=== PATIENT | female | born 1940 | race Caucasian/White ===

== ENCOUNTER 2024-10-15 16:41 | Inpatient (IN) | payer OTHER ==
[~2024-10-15] VITALS: Ht 165.1 cm; Wt 80.8 kg
[2024-10-15 17:04] VITALS: BP 96/52
[2024-10-15] MEDS ORDERED: IOHEXOL 300 MG/ML 100 ML VIAL IV ONE (17:30)
[2024-10-15] MEDS ORDERED: SODIUM CHLORIDE 0.9% 1,000 ML IV ONE ×3 (17:40→21:18)
[2024-10-15 18:01] LABS: BASO # 0.0 10*3/uL (0.0-0.1); BASO % 0.2 % (0.0-1.0); EOS # 0.0 10*3/uL (0.0-0.4); EOS % 0.3 % (1.0-4.0); MEAN CELL VOLUME 97.8 fl (81.0-99.0); MEAN CORPUSCULAR HGB 31.1 pg (27.0-31.0); MEAN PLATELET VOLUME 10.4 fl (9.6-12.3); MONO # 0.4 10*3/uL (0.1-1.0); MONO % 3.4 % (3.0-9.0); NEUT # 11.4 10*3/uL (2.3-7.9); NEUT % 90.0 % (47.0-73.0); NUCLEATED RED BLOOD CELL 0.0 % (0.0-0.0); NUCLEATED RED BLOOD CELL 0.0 10*3/uL (0.0-0.0); PLATELET COUNT AUTOMATED 93 10*3/uL (130-400); RED CELL DISTRI WIDTH 14.9 % (0-14.5)
[2024-10-15] MEDS ORDERED: AMLODIPINE BESYL5 MG PO (18:18)
[2024-10-15] MEDS ORDERED: LEVOTHYROXINE75 MCG PO (18:19)
[2024-10-15] MEDS ORDERED: CARVEDILOL3.125 MG PO (18:19)
[2024-10-15] MEDS ORDERED: ATORVASTATIN CA20 M1 PO (18:20)
[2024-10-15] MEDS ORDERED: SERTRALINE HYDR50 MG PO (18:21)
[2024-10-15 18:23] LABS: BUN 83.0 mg/dl (9-23)
[2024-10-15] MEDS ORDERED: DHIVY 25-100 M1 EAC1 PO (18:23)
[2024-10-15] MEDS ORDERED: RALOXIFENE HYDR60 MG PO (18:24)
[2024-10-15] MEDS ORDERED: ENALAPRIL5 MG PO (18:25)
[2024-10-15] MEDS ORDERED: CLARITIN10 MG PO (18:27)
[2024-10-15] MEDS ORDERED: OMEPRAZOLE20 M3 PO (18:28)
[2024-10-15] MEDS ORDERED: [UNRECOGNIZED DRUG - OTHER] PO (18:29)
[2024-10-15] MEDS ORDERED: NASACORT16.9 ML INH (18:30)
[2024-10-15 20:23] VITALS: BP 121/62
[2024-10-15] MEDS ORDERED: CIPROFLOXACIN 200 ML IV ONE (20:50)
[2024-10-15] MEDS ORDERED: Ondansetron Hydrochloride 4 MG/2 ML VIAL IV PRN (21:15)
[2024-10-15] MEDS ORDERED: SODIUM CHLORIDE 0.9% 1,000 ML IV SCH (21:20)
[2024-10-15] MEDS ORDERED: Lactated Ringer's Solution 1,000 ML IV SCH (21:45)
[2024-10-15] MEDS ORDERED: metroNIDAZOLE 500 MG TAB PO SCH (22:00)
[2024-10-15 22:40] LABS: BUN 82.0 mg/dl (9-23); CPK 450.0 U/L (34-171); SGPT/ALT 67.0 U/L (5-49)
[2024-10-15 22:56] LABS: BILIRUBIN Negative (Negative); BLOOD 3+ (Negative); CLARITY Cloudy (Clear); COLOR Dark Yellow (Yellow); KETONE Trace (Negative); LEUKO ESTERASE 3+ (Negative); NITRITE Negative (Negative); PH 5.0 (4.5-8.0); SPECIFIC GRAVITY 1.015 (1.001-1.030); UROBILINOGEN 1.0 E.U./dl (0.0-1.0)
[2024-10-15 23:05] LABS: BACTERIA 1+; EPITHELIAL CELLS 16-20; MUCOUS 1+; RBC 41-50 rbc/hpf (0-2); WBC 31-40 wbc/hpf (0-5)
[2024-10-16 00:25] VITALS: BP 111/50
[2024-10-16] MEDS ORDERED: Lactated Ringer's Solution 2,000 ML IV ONE (01:17)
[2024-10-16] MEDS ORDERED: LORATADINE 10 MG TAB PO PRN (01:55)
[2024-10-16 06:04] LABS: BASO # 0.0 10*3/uL (0.0-0.1); BASO % 0.2 % (0.0-1.0); EOS # 0.1 10*3/uL (0.0-0.4); EOS % 1.1 % (1.0-4.0); MEAN CELL VOLUME 100.0 fl (81.0-99.0); MEAN CORPUSCULAR HGB 31.0 pg (27.0-31.0); MEAN PLATELET VOLUME 10.9 fl (9.6-12.3); MONO # 0.4 10*3/uL (0.1-1.0); MONO % 4.2 % (3.0-9.0); NEUT # 8.6 10*3/uL (2.3-7.9); NEUT % 84.7 % (47.0-73.0); NUCLEATED RED BLOOD CELL 0.0 % (0.0-0.0); NUCLEATED RED BLOOD CELL 0.0 10*3/uL (0.0-0.0); PLATELET COUNT AUTOMATED 94 10*3/uL (130-400); RED CELL DISTRI WIDTH 14.7 % (0-14.5)
[2024-10-16 06:14] LABS: FREE T4 0.85 ng/dl (0.89-1.76); LDL CHOLESTEROL 64.0 mg/dL (9-159); SGPT/ALT 82.0 U/L (5-49)
[2024-10-16 06:20] LABS: BUN 72.0 mg/dl (9-23)
[2024-10-16 06:37] LABS: ACT PARTIAL THROMBO TIME 37.2 SECONDS (20.0-32.1)
[2024-10-16 07:20] LABS: VITAMIN D, 25-HYDROXY 38.6 ng/mL (30-100)
[2024-10-16 08:00] VITALS: BP 117/51
[2024-10-16] MEDS ORDERED: CARVEDILOL 3.125 MG TAB PO SCH (10:00)
[2024-10-16] MEDS ORDERED: Carbidopa/Levodopa 25/100MG 1 TAB TAB PO SCH (10:00)
[2024-10-16 12:00] VITALS: BP 118/50
[2024-10-16 16:00] VITALS: BP 149/75
[2024-10-16] MEDS ORDERED: ATORVASTATIN CALCIUM 20 MG TAB PO SCH (18:00)
[2024-10-16 20:00] VITALS: BP 124/63
[2024-10-16] MEDS ORDERED: FLUTICASONE PROPIONATE Nasal 16 Gm spray NAS SCH (22:00)
[2024-10-17] VITALS: BP 108/54
[2024-10-17 06:00] LABS: SGPT/ALT 84.0 U/L (5-49)
[2024-10-17 06:01] LABS: BUN 59.0 mg/dl (9-23)
[2024-10-17 06:12] LABS: BASO # 0.0 10*3/uL (0.0-0.1); BASO % 0.3 % (0.0-1.0); EOS # 0.2 10*3/uL (0.0-0.4); EOS % 3.4 % (1.0-4.0); MEAN CELL VOLUME 98.3 fl (81.0-99.0); MEAN CORPUSCULAR HGB 31.0 pg (27.0-31.0); MEAN PLATELET VOLUME 10.3 fl (9.6-12.3); MONO # 0.3 10*3/uL (0.1-1.0); MONO % 4.6 % (3.0-9.0); NEUT # 5.5 10*3/uL (2.3-7.9); NEUT % 79.3 % (47.0-73.0); NUCLEATED RED BLOOD CELL 0.0 % (0.0-0.0); NUCLEATED RED BLOOD CELL 0.0 10*3/uL (0.0-0.0); PLATELET COUNT AUTOMATED 91 10*3/uL (130-400); RED CELL DISTRI WIDTH 14.9 % (0-14.5)
[2024-10-17 08:00] VITALS: BP 136/87
[2024-10-17 12:00] VITALS: BP 154/80
[2024-10-17 16:00] VITALS: BP 154/79
[2024-10-17 20:00] VITALS: BP 148/88; BP 175/90
[2024-10-18] VITALS (8 sets, daily range): BP systolic 146–192; BP diastolic 72–98
[2024-10-18 06:15] LABS: BUN 40.0 mg/dl (9-23)
[2024-10-19] VITALS: BP 154/73
[2024-10-19 08:00] VITALS: BP 182/91
[2024-10-19 12:00] VITALS: BP 154/89
[2024-10-19 16:00] VITALS: BP 156/86
[2024-10-19 20:00] VITALS: BP 185/96
[2024-10-20] VITALS (7 sets, daily range): BP systolic 116–167; BP diastolic 69–98
[2024-10-20] MEDS ORDERED: SODIUM CHLORIDE 0.9% 1,000 ML IV ONE (00:05)
[2024-10-20] MEDS ORDERED: METOPROLOL SUCCINATE XR 25 MG TAB PO ONE ×2 (00:15→23:55)
[2024-10-20] MEDS ORDERED: APIXABAN 2.5 MG TABLET PO SCH ×2 (00:20→10:00)
[2024-10-20 06:11] LABS: BASO # 0.1 10*3/uL (0.0-0.1); BASO % 0.6 % (0.0-1.0); EOS # 0.3 10*3/uL (0.0-0.4); EOS % 2.3 % (1.0-4.0); MEAN CELL VOLUME 95.7 fl (81.0-99.0); MEAN CORPUSCULAR HGB 30.8 pg (27.0-31.0); MEAN PLATELET VOLUME 10.2 fl (9.6-12.3); MONO # 0.6 10*3/uL (0.1-1.0); MONO % 5.9 % (3.0-9.0); NEUT # 8.0 10*3/uL (2.3-7.9); NEUT % 74.9 % (47.0-73.0); NUCLEATED RED BLOOD CELL 0.0 % (0.0-0.0); NUCLEATED RED BLOOD CELL 0.0 10*3/uL (0.0-0.0); PLATELET COUNT AUTOMATED 122 10*3/uL (130-400); RED CELL DISTRI WIDTH 14.7 % (0-14.5)
[2024-10-20 06:29] LABS: SGPT/ALT 90.0 U/L (5-49)
[2024-10-20 06:32] LABS: BUN 23.0 mg/dl (9-23)
[2024-10-20] MEDS ORDERED: LISINOPRIL 20 MG TAB PO SCH (10:00)
[2024-10-21] VITALS: BP 145/75
[2024-10-21 08:00] VITALS: BP 186/91
[2024-10-21 09:24] VITALS: BP 150/92
[2024-10-21 12:24] VITALS: BP 158/96
[2024-10-21 16:00] VITALS: BP 136/88
[2024-10-21 20:00] VITALS: BP 172/92
[2024-10-22] VITALS (7 sets, daily range): BP systolic 141–196; BP diastolic 67–112
[2024-10-22] MEDS ORDERED: Labetalol Hydrochloride 20 MG/4 ML SYR IV ONE (15:35)
[2024-10-23] VITALS: BP 153/86
[2024-10-23 08:00] VITALS: BP 159/88
[2024-10-23] MEDS ORDERED: CARVEDILOL 6.25 MG TAB PO SCH (10:00)
[2024-10-23 12:00] VITALS: BP 131/75
[2024-10-23 16:00] VITALS: BP 170/89; BP 176/88
[2024-10-23 20:00] VITALS: BP 176/88
[2024-10-24] VITALS: BP 119/74
[2024-10-24 08:00] VITALS: BP 143/88
[2024-10-24] MEDS ORDERED: Menthol/Zinc Oxide 4 GM THIN T SCH (10:30)
[2024-10-24 12:00] VITALS: BP 138/77
[2024-10-24 16:00] VITALS: BP 151/83
[2024-10-24 20:00] VITALS: BP 131/70
[2024-10-25 08:00] VITALS: BP 165/83
[2024-10-25 08:38] LABS: BUN 29.0 mg/dl (9-23)
[2024-10-25 11:54] VITALS: BP 156/85
[2024-10-25] MEDS ORDERED: CARVEDILOL6.25 MG PO (12:40)
[2024-10-25] MEDS ORDERED: ELIQUIS5 M1 PO (12:42)
== END 2024-10-25 14:10 | DRG 682 ==
LOC: ED 16:41 → 5E 20:56 → EDHOLD 20:56 → 5E 23:40 → 4E 10-22 13:56
PROVIDERS: Nurse Practitioner Family; Student in an Organized Health Care Education/Training Program; ADMIT Internal Medicine; ATTEND Internal Medicine
DX: N17.0 Acute kidney failure with tubular necrosis (principal); E43 Unspecified severe protein-calorie malnutrition; N30.01 Acute cystitis with hematuria; E87.1 Hypo-osmolality and hyponatremia; E86.0 Dehydration; K52.9 Noninfective gastroenteritis and colitis, unspecified; E66.3 Overweight; N18.32 Chronic kidney disease, stage 3b; R29.6 Repeated falls; F41.9 Anxiety disorder, unspecified; J43.9 Emphysema, unspecified; K21.9 Gastro-esophageal reflux disease without esophagitis; E03.9 Hypothyroidism, unspecified; E78.2 Mixed hyperlipidemia; G62.9 Polyneuropathy, unspecified; M81.0 Age-related osteoporosis without current pathological fracture; D72.825 Bandemia; D64.9 Anemia, unspecified; D69.6 Thrombocytopenia, unspecified; R74.01 Elevation of levels of liver transaminase levels; E55.9 Vitamin D deficiency, unspecified; G25.0 Essential tremor; N28.1 Cyst of kidney, acquired; M51.9 Unspecified thoracic, thoracolumbar and lumbosacral intervertebral disc disorder; I12.9 Hypertensive chronic kidney disease with stage 1 through stage 4 chronic kidney disease, or unspecified chronic kidney disease; T45.515A Adverse effect of anticoagulants, initial encounter; R62.7 Adult failure to thrive; K76.0 Fatty (change of) liver, not elsewhere classified; G20.A1 Parkinson's disease without dyskinesia, without mention of fluctuations; Z79.899 Other long term (current) drug therapy; Z79.2 Long term (current) use of antibiotics; Y92.89 Other specified places as the place of occurrence of the external cause; Z91.09 Other allergy status, other than to drugs and biological substances; Z86.718 Personal history of other venous thrombosis and embolism; Z79.01 Long term (current) use of anticoagulants; Z90.49 Acquired absence of other specified parts of digestive tract; Z98.1 Arthrodesis status; Z68.28 Body mass index [BMI] 28.0-28.9, adult